=== PATIENT | female | born 1970 | race Caucasian/White ===

== ENCOUNTER 2018-04-03 22:24 | Emergency (ER) | payer SELFPAY ==
[~2018-04-03] VITALS: Ht 167.6 cm; Wt 69.4 kg
[2018-04-03 22:36] VITALS: Ht 167.6 cm; Wt 69.4 kg
[2018-04-03 23:10] LABS: UA SPECIFIC GRAVITY <=1.005 (1.005-1.035); microscopic required? YES; urine erythrocyte 1+ (NEGATIVE)
[2018-04-03 23:12] LABS: BASOPHIL % 0.4 % (0-2); PLATELET COUNT 189 x10^3mcL (130-400); RED CELL DISTRIBUTION WIDTH 12.7 % (11.5-14.5)
[2018-04-03 23:27] LABS: AMPHETAMINE QUAL UR NONE DETECTED (See below)
[2018-04-03 23:28] LABS: CALCIUM 8.3 mg/dL (8.5-10.1); CREATININE SERUM 1.1 mg/dL (0.6-1.0); POTASSIUM SERUM 3.5 mmol/L (3.5-5.1)
[2018-04-03 23:43] LABS: ALBUMIN 3.9 g/dL (3.4-5.0); BILIRUBIN TOTAL 0.2 mg/dL (0.20-1.00); MAGNESIUM 1.9 mg/dL (1.8-2.4); T4(THYROXINE) 9.4 ug/dL (4.7-13.3); TOTAL PROTEIN, SERUM 7.3 g/dL (6.4-8.2)
[2018-04-04 01:37] VITALS: BP 121/72
== END 2018-04-04 01:37 | disposition other institution (70) ==
LOC: ED 22:24
PROVIDERS: Emergency Medicine
PROC: 3E033GC Introduction of Other Therapeutic Substance into Peripheral Vein, Percutaneous Approach (ICD-10-PCS; principal; 2018-04-04)
DX: F10.129 Alcohol abuse with intoxication, unspecified (principal); F12.929 Cannabis use, unspecified with intoxication, unspecified; R11.10 Vomiting, unspecified
CPT/HCPCS: 82962; G0480; J3411; J3475; J3490; J7030; Q0092

== ENCOUNTER 2018-04-03 22:24 | Emergency (ER) | payer OTHER | END 2018-04-04 01:37 | disposition other institution (70) | LOC: ED 22:24 | DX: Z02.89 Encounter for other administrative examinations (principal) ==